=== PATIENT | male | born 1970 | race Caucasian/White ===

== ENCOUNTER → 2017-06-29 | Day surgery (SDC) | payer OTHER ==
[~2017-06-29] MED LIST: BUPIVACAINE/EPINEPHRINE 0.25% 50 ML VIAL ONE; LIDOCAINE 1.5%/EPINEPHrine 1:200,000 PF SOLN 30 ML AMP ONE; SODIUM BICARBONATE 8.4% INJ 50 ML ONE
--- NOTE | 2017-06-29 11:26 | TN ---
cc: LUCIA HOFFMAN M.D. DATE OF SURGERY 06/29/2017 PREOPERATIVE DIAGNOSIS Multiple (5) lipomas quite bothersome growing on the: 1. two at the Left lower chest flank x2 area measuring 2 cm each. 2. Left lower forearm 1-1/2 cm. 3. Right elbow 1 cm 4) right shoulder 2 cm. POSTOPERATIVE DIAGNOSIS Multiple lipomas quite bothersome growing on the: 1. Left lower chest flank x2 area measuring 2 cm each. 2. Left lower forearm 1-1/2 cm. 3. Right elbow 1 cm 4) right shoulder 2 cm. PROCEDURE Removal of five deep subcutaneous masses that were symptomatic. See above for sizes and location ANESTHESIA Local SURGEON Dr. Hoffman PROCEDURE The patient taken to the operating room. He turns himself over to the left side up. In the right flank lower chest area two subcutaneous masses that measure about 2 cm are palpated, previously marked, anesthetize with Marcaine solution. The two areas, we make a 2-cm incision overlying the apex of these tender masses. We dissect down to the deep subcutaneous tissue excising the surrounding area and each of these passed off the field. One is larger than the other one, but the largest one is about 2 cm, the other one is about one. These are submitted together as subcutaneous masses. We closed these wounds in a double layer with a 3-0 Vicryl and 4-0 Vicryl. Steri-Strips applied. Sterile bandage applied. We then direct our attention to the left midforearm. A 2 cm lipomatous mass is noted. We had previously marked it. We prepped it with Betadine and we anesthetize with a Marcaine solution. A linear incision is made over the apex of the mass. The mass is then enucleated out from the deep subcutaneous tissues using electrocautery for hemostasis. The deep layer was then closed with a 2-0 Vicryl and skin with a 4-0 Vicryl. This was labeled as left upper extremity subcutaneous mass. Sterile bandages applied. We then direct our attention to the right side. He was prepped with Betadine. The posterior elbow region and been previously marked, anesthetized with a Marcaine solution. We made a 2-cm incision overlying this mass. The 2 cm lipomatous structure was then excised and dissected free from the surrounding structures and passed off the field. The deep layer was closed with 3-0 Vicryl and skin with 4-0 Vicryl. We then direct our attention to the right upper right upper shoulder area just medial to a tattoo. A linear incision was made after anesthetizing with a Marcaine solution, dissect down through the subcutaneous tissue identifying a 3 cm lipomatous structure that was enucleated out from the surrounding area and passed off the field and labeled as such. We then assured hemostasis. The deep layers were closed with 3-0 Vicryl and skin was closed with a 4-0 Vicryl. Steri-Strips were applied. A sterile bandage was applied. The patient tolerated the procedure well and had no immediate postop complications. MD RUDDY العراقي/ASHWIN /11:09 AM /11:17 AM ALEX
== END | disposition home or self-care (01) ==
LOC: ESDC 08:01
PROVIDERS: ATTEND Surgery
DX: D17.1 Benign lipomatous neoplasm of skin and subcutaneous tissue of trunk (principal); D17.22 Benign lipomatous neoplasm of skin and subcutaneous tissue of left arm; D17.21 Benign lipomatous neoplasm of skin and subcutaneous tissue of right arm
CPT/HCPCS: 88304; 88305